=== PATIENT | female | born 1995 | race Caucasian/White ===

== ENCOUNTER 2019-12-25 15:05 | Emergency (ER) | payer MEDICAID ==
[~2019-12-25] VITALS: Ht 167.6 cm; Wt 60.0 kg
[2019-12-25] MEDS ORDERED: TETRACAINE 0.5% OPHTH DROPS 4ML BOTHEYE ONE (16:00)
[2019-12-25] MEDS ORDERED: FLUORESCEIN SODIUM 1MG/STRIP BOTHEYE ONE ×2 (16:00→16:45)
[2019-12-25] MEDS ORDERED: CEFTRIAXONE SODIUM 250 MG/VIAL IM ONE (16:00)
[2019-12-25] MEDS ORDERED: AZITHROMYCIN 500 MG TABLET PO ONE (16:00)
[2019-12-25 16:33] LABS: CLARITY URINE CLOUDY (CLEAR); COLOR URINE YELLOW (YELLOW); KETONES URINE NEGATIVE (NEGATIVE); LEUKOCYTE ESTERASE URINE 3+ (NEGATIVE); NITRITE URINE NEGATIVE (NEGATIVE); OCCULT BLOOD URINE NEGATIVE (NEGATIVE); PROTEIN URINE NEGATIVE (NEGATIVE); SPECIFIC GRAVITY URINE 1.026 (1.005-1.030); UROBILINOGEN URINE 0.2 E.U./dL (0.2-1.0)
[2019-12-25] MEDS ORDERED: IBUPROFEN 600MG TABLET PO ONE (17:30)
[2019-12-25 17:40] VITALS: BP 117/71
== END 2019-12-25 17:52 | disposition home or self-care (01) ==
LOC: ER 15:05
DX: H10.022 Other mucopurulent conjunctivitis, left eye (principal); N39.0 Urinary tract infection, site not specified; Z20.2 Contact with and (suspected) exposure to infections with a predominantly sexual mode of transmission
CPT/HCPCS: 81003; 81025; 87077; 87086; 96372; 99284; J0696